=== PATIENT | male | born 1955 | race Caucasian/White ===

== ENCOUNTER 2018-03-16 12:08 | Emergency (ER) | payer MEDICARE ==
[2018-03-16] MEDS ORDERED: Sodium Chloride 0.9% 1,000 ML IV ONE (12:33)
[2018-03-16] MEDS ORDERED: Sodium Chloride 0.9% 2.5 ML Syringe FLUSH PRN (12:33)
[2018-03-16] MEDS ORDERED: Sodium Chloride 0.9% 10 ML Syringe FLUSH PRN (12:33)
[2018-03-16] MEDS ORDERED: Ondansetron 4 MG/2 ML SDV IVPUSH ONE (12:33)
--- NOTE | 2018-03-16 12:40 | EDM.PDOC ---
ED HPI GENERAL MEDICAL PROBLEM - General Chief Complaint: General Time Seen by Provider: 03/16/18 12:27 Source of Information: Reports: Family History Limitations: Reports: No Limitations - History of Present Illness INITIAL COMMENTS - FREE TEXT/NARRATIVE: History of present illness: []He is one-month status post aka right lower extremity, (2-1/2 years post left aka amputation). Patient was at a rehabilitation facility and my not and was discharged today to [place] here and [place], however upon arrival at [place] they refused to take him and stated he needed to come to the emergency room. She states that he's been vomiting green fluid in the car on the drive to [place] today and has been complaining of pain in his Hernandez catheter. Patient is not taking fluids very well by mouth. Patient's last bowel movement was 3 days ago Review of systems: As per history of present illness and below otherwise all systems reviewed and negative. Past medical history: As per history of present illness and as reviewed below otherwise noncontributory. Surgical history: As per history of present illness and as reviewed below otherwise noncontributory. Social history: No reported history of drug or alcohol abuse. Family history: As per history of present illness and as reviewed below otherwise noncontributory. Physical exam: General: Well developed, well nourished in NAD HEENT: Atraumatic, normocephalic, pupils reactive, negative for conjunctival pallor or scleral icterus, mucous membranes moist, throat clear, neck supple, nontender, trachea midline. Lungs: Clear to auscultation, breath sounds equal bilaterally, chest nontender. Heart: S1S2, regular, negative for clicks, rubs, or JVD. Abdomen: Soft, nondistended, nontender. Negative for masses or hepatosplenomegaly. Negative for costovertebral tenderness. Pelvis: Stable nontender. Genitourinary: Deferred. Rectal: Deferred. Extremities: Bilateral AKA Neuro: Awake, alert, oriented. Cranial nerves II through XII unremarkable. Cerebellum unremarkable. Motor and sensory unremarkable throughout. Exam nonfocal. Skin:warm and dry Diagnostics: CBC, EKG, chemistry, lipase, UA Therapeutics: IV hydration and later saline, calcium chloride, glucose, regular insulin and sodium bicarbonate given prior transport ED Course: 13:[address] [facility] accepts patient Impression: Pancreatitis, hyperkalemia, dehydration, renal failure Prescriptions: None Plan: Transfer to [facility] Definitive disposition and diagnosis as appropriate pending reevaluation and review of above. Penis Pain Score (Numeric/FACES): 8 - Related Data Allergies Allergy/AdvReac Type Severity Reaction Status Date / Time bee venom protein (honey bee) Allergy Other Verified 03/16/18 13:48 fentanyl Allergy Other Verified 03/16/18 13:48 hydrocodone Allergy Other Verified 03/16/18 13:48 oxycodone Allergy Other Verified 03/16/18 13:48 propoxyphene [From Darvon] Allergy Other Verified 03/16/18 13:48 Home Meds: Home Meds Allopurinol [Zyloprim] 300 mg PO DAILY 09/01/13 [History] Aspirin [Children's Aspirin] 81 mg PO DAILY 09/01/13 [History] Gemfibrozil [Lopid] 600 mg PO DAILY 09/01/13 [History] Insulin Glarg,Human.Rec.Analog [LantUS] 34 unit SUBCUT DAILY 09/01/13 [History] Insulin Lispro [HumaLOG] 74 unit SQ ACBED 09/01/13 [History] Lisinopril 40 mg PO DAILY 09/01/13 [History] metFORMIN [Glucophage] 1,000 mg PO BIDM 09/01/13 [History] Past Medical History - Past Surgical History Other Cardiovascular Surgeries/Procedures: quad bypass ED ROS GENERAL - Review of Systems Review Of Systems: ROS reveals no pertinent complaints other than HPI. ED EXAM, GENERAL - Physical Exam Exam: See Below (The history of present illness) Course - Vital Signs Last Recorded V/S: Last Vital Signs Temp 96.4 F 03/16/18 12:30 Pulse 72 03/16/18 12:30 Resp 18 03/16/18 12:30 BP 125/60 03/16/18 12:30 Pulse Ox 95 03/16/18 12:30 - Orders/Labs/Meds Orders: Active Orders 24 hr Category Date Time Status EKG Documentation Completion [RC] STAT Care 03/16/18 13:37 Ordered UA W/MICROSCOPIC [URIN] Stat Lab 03/16/18 12:32 Ordered Sodium Chloride 0.9% [Saline Flush] Med 03/16/18 12:33 Active 10 ml FLUSH ASDIRECTED PRN Sodium Chloride 0.9% [Saline Flush] Med 03/16/18 12:33 Active 2.5 ml FLUSH ASDIRECTED PRN Saline Lock Insert [OM.PC] Stat Oth 03/16/18 12:32 Ordered Medication Orders Sodium Chloride (Saline Flush) 10 ml FLUSH ASDIRECTED PRN PRN Reason: Keep Vein Open Sodium Chloride (Saline Flush) 2.5 ml FLUSH ASDIRECTED PRN PRN Reason: Keep Vein Open Labs: Laboratory Tests 03/16/18 03/16/18 Range/Units 12:54 12:54 WBC 7.27 (4.0-11.0) K/uL RBC 4.06 L (4.50-5.90) M/uL Hgb 11.4 L (13.0-17.0) g/dL Hct 34.8 L (38.0-50.0) % MCV 85.7 (80.0-98.0) fL MCH 28.1 (27.0-32.0) pg MCHC 32.8 (31.0-37.0) g/dL RDW Std Deviation 47.8 (28.0-62.0) fl RDW Coeff of Joshua 15 (11.0-15.0) % Plt Count 263 (150-400) K/uL MPV 10.00 (7.40-12.00) fL Neut % (Auto) 81.2 H (48.0-80.0) % Lymph % (Auto) 12.2 L (16.0-40.0) % [place] % (Auto) 3.4 (0.0-15.0) % Eos % (Auto) 2.9 (0.0-7.0) % Baso % (Auto) 0.3 (0.0-1.5) % Neut # (Auto) 5.9 H (1.4-5.7) K/uL Lymph # (Auto) 0.9 (0.6-2.4) K/uL [place] # (Auto) 0.3 (0.0-0.8) K/uL Eos # (Auto) 0.2 (0.0-0.7) K/uL Baso # (Auto) 0.0 (0.0-0.1) K/uL Nucleated RBC % 0.0 /100WBC Nucleated RBCs # 0 K/uL Sodium 138 (136-148) mmol/L Potassium 6.0 H (3.5-5.1) mmol/L Chloride 104 (98-107) mmol/L Carbon Dioxide 17.1 L (21.0-32.0) mmol/L BUN 205 H (7.0-18.0) mg/dL Creatinine 2.8 H (0.8-1.3) mg/dL Est Cr Clr Drug Dosing TNP Estimated GFR (MDRD) 22.9 ml/min Glucose 144 H (74-106) mg/dL Calcium 9.7 (8.5-10.1) mg/dL Total Bilirubin 0.2 (0.2-1.0) mg/dL AST 19 (15-37) IU/L ALT 13 L (14-63) IU/L Alkaline Phosphatase 106 (46-116) U/L Total Protein 7.9 (6.4-8.2) g/dL Albumin 3.4 (3.4-5.0) g/dL Globulin 4.5 H (2.6-4.0) g/dL Albumin/Globulin Ratio 0.8 L (0.9-1.6) Lipase 685 H (73-393) U/L Meds: Medications Generic Name Dose Route Start Last Admin Trade Name Aleksandr PRN Reason Stop Dose Admin Sodium Chloride 10 ml 03/16/18 12:33 Saline Flush FLUSH ASDIRECTED PRN Keep Vein Open Sodium Chloride 2.5 ml 03/16/18 12:33 Saline Flush FLUSH ASDIRECTED PRN Keep Vein Open Discontinued Medications Generic Name Dose Route Start Last Admin Trade Name Aleksandr PRN Reason Stop Dose Admin Calcium Chloride 1 gm 03/16/18 13:38 Calcium Chloride 10% IVPUSH 03/16/18 13:39 ONETIME ONE Sodium Chloride 1,000 mls @ 999 mls/hr 03/16/18 12:33 03/16/18 13:05 Normal Saline IV 03/16/18 13:33 999 mls/hr .Bolus ONE Administration Insulin Human Regular 10 unit 03/16/18 13:40 Novolin R IVPUSH 03/16/18 13:41 ONETIME ONE Protocol Metoclopramide HCl 10 mg 03/16/18 13:20 Reglan IV 03/16/18 13:21 ONETIME ONE Ondansetron HCl 4 mg 03/16/18 12:33 03/16/18 13:05 Zofran IVPUSH 03/16/18 12:34 4 mg ONETIME ONE Administration Sodium Bicarbonate 50 meq 03/16/18 13:40 Sodium Bicarbonate 8.4% IVPUSH 03/16/18 13:41 ONETIME ONE Departure - Departure Time of Disposition: 13:55 Disposition: DC/Tfer to Acute Hospital 02 Condition: Good Clinical Impression: Hyperkalemia Pancreatitis Qualifiers: Chronicity: acute Pancreatitis type: unspecified pancreatitis type Acute pancreatitis complication: unspecified Qualified Code(s): K85.90 - Acute pancreatitis without necrosis or infection, unspecified Renal failure Qualifiers: Renal failure chronicity: acute Acute renal failure type: unspecified Qualified Code(s): N17.9 - Acute kidney failure, unspecified - Discharge Information *PRESCRIPTION DRUG MONITORING PROGRAM REVIEWED*: No *COPY OF PRESCRIPTION DRUG MONITORING REPORT IN PATIENT FLACA: No Referrals: PCP,Unknown [Primary Care Provider] - Forms: ED Department Discharge - My Orders Last 24 Hours: My Active Orders 03/16/18 12:32 UA W/MICROSCOPIC [URIN] Stat Saline Lock Insert [OM.PC] Stat 03/16/18 12:33 Sodium Chloride 0.9% [Saline Flush] 10 ml FLUSH ASDIRECTED PRN Sodium Chloride 0.9% [Saline Flush] 2.5 ml FLUSH ASDIRECTED PRN 03/16/18 13:37 EKG Documentation Completion [RC] STAT - Assessment/Plan Last 24 Hours: My Active Orders 03/16/18 12:32 UA W/MICROSCOPIC [URIN] Stat Saline Lock Insert [OM.PC] Stat 03/16/18 12:33 Sodium Chloride 0.9% [Saline Flush] 10 ml FLUSH ASDIRECTED PRN Sodium Chloride 0.9% [Saline Flush] 2.5 ml FLUSH ASDIRECTED PRN 03/16/18 13:37 EKG Documentation Completion [RC] STAT
[2018-03-16 13:24] LABS: CHLORIDE,CL 104 mmol/L (98-107); SODIUM,NA 138 mmol/L (136-148)
[2018-03-16] MEDS ORDERED: Calcium Chloride 10% 1 GM/10 ML Syringe IVPUSH ONE (13:38)
[2018-03-16] MEDS ORDERED: Sodium Bicarbonate 8.4% 50 MEQ/50 ML Syringe IVPUSH ONE (13:40)
[2018-03-16] MEDS ORDERED: 50% Dextrose in Water 50 ML Syringe ONE (13:49)
[2018-03-16] MEDS: Insulin Regular, Human 100 Units/ML 10 ML Vial IVPUSH ONE ×2 (14:00→14:39)
[2018-03-16] MEDS: Metoclopramide 10 MG/2 ML SDV IV ONE ×2 (14:03→17:07)
[2018-03-16 16:33] VITALS: BP 111/63
== END 2018-03-16 15:45 ==
LOC: MW.ED 12:08
DX: K85.90 Acute pancreatitis without necrosis or infection, unspecified (principal); N17.9 Acute kidney failure, unspecified; E87.5 Hyperkalemia; E86.0 Dehydration; E11.9 Type 2 diabetes mellitus without complications; I10 Essential (primary) hypertension; Z79.82 Long term (current) use of aspirin; Z79.899 Other long term (current) drug therapy; Z91.030 Bee allergy status; Z88.5 Allergy status to narcotic agent; Z88.8 Allergy status to other drugs, medicaments and biological substances; Z89.512 Acquired absence of left leg below knee; Z89.611 Acquired absence of right leg above knee
CPT/HCPCS: 36415; 80053; 81001; 83690; 85025; 93005; 96361; 96374; 96375; 99285; J2405; J7040; J7060; J1815-GY; J2765

== ENCOUNTER 2018-03-23 04:50 | Emergency (ER) | payer MEDICARE ==
[2018-03-23] MEDS ORDERED: Ondansetron 4 MG/2 ML SDV IVPUSH ONE ×2 (05:24→06:59)
[2018-03-23] MEDS ORDERED: Sodium Chloride 0.9% 1,000 ML IV ONE (05:56)
[2018-03-23 06:09] LABS: CHLORIDE,CL 108 mmol/L (98-107); SODIUM,NA 145 mmol/L (136-148)
--- NOTE | 2018-03-23 06:56 | CR ---
INDICATION: Chest pain. TECHNIQUE: Portable chest. FINDINGS: Sternotomy wires are noted. There is elevation of the right hemidiaphragm. Heart and mediastinum are normal. Lungs are clear. IMPRESSION: 1. Prior sternotomy wires. 2. Chronic elevation of the right hemidiaphragm. No acute consolidations or pleural effusions. Dictated by Ge Chan MD @ Mar 23 2018 6:53AM Signed by Dr. Ge Chan @ Mar 23 2018 6:54AM
[2018-03-23] MEDS ORDERED: Ondansetron 4 MG/2 ML SDV ONE (07:01)
[2018-03-23] MEDS ORDERED: cefTRIAXone 1 GM Vial IM ONE (07:14)
--- NOTE | 2018-03-23 07:22 | EDM.PDOC ---
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 He presents today with concern of chest and abdominal pain nausea and vomiting he states some of the symptoms have been off and on for the past month and he states he has had a cardiac workup including angiogram at [facility] although there was no intervention reported per patient's history he states that he was told that he is at high risk for cardiac events. He is a vague historian and somewhat unreliable with the details. His chest pains without associated shortness of breath or diaphoresis. Patient does take aspirin daily and did take 1 today. Review of systems: As per history of present illness and below otherwise all systems reviewed and negative. Past medical history: As per history of present illness and as reviewed below otherwise noncontributory. Surgical history: As per history of present illness and as reviewed below otherwise noncontributory. Social history: No reported history of drug or alcohol abuse. Family history: As per history of present illness and as reviewed below otherwise noncontributory. Physical exam: HEENT: Atraumatic, normocephalic, pupils reactive, negative for conjunctival pallor or scleral icterus, mucous membranes dry, throat clear, neck supple, nontender, trachea midline. Lungs: Clear to auscultation, breath sounds equal bilaterally, chest nontender. Heart: S1S2, regular, negative for clicks, rubs, or JVD. Abdomen: Soft, nondistended, no localized tenderness Negative for masses or hepatosplenomegaly. Negative for costovertebral tenderness. Pelvis: Stable nontender. Genitourinary: Deferred. Rectal: Deferred. Extremities: Bilateral [id number] amputation noted his wound on the left recent amputation is without evidence of infection neurovascular exam is unremarkable. Neuro: Awake, alert, follows commands and moves all extremities limited grossly nonfocal exam Diagnostics: CBC CMP troponin chest x-ray EKG CT abdomen and pelvis Therapeutics: IV O2 monitor saline 1 L bolus morphine sulfate 2 mg IV Zofran 4 mg IV Impression: #1 atypical chest pain #2 abnormal EKG #3 abdominal pain for 4 history of pancreatitis Definitive disposition and diagnosis as appropriate pending reevaluation and review of above. Epigastric/abdomen Pain Score (Numeric/FACES): 9 - Related Data Allergies Allergy/AdvReac Type Severity Reaction Status Date / Time bee venom protein (honey bee) Allergy Other Verified 03/23/18 06:35 fentanyl Allergy Other Verified 03/23/18 06:35 hydrocodone Allergy Other Verified 03/23/18 06:35 oxycodone Allergy Other Verified 03/23/18 06:35 propoxyphene [From Darvon] Allergy Other Verified 03/23/18 06:35 Home Meds: Home Meds Aspirin [Children's Aspirin] 81 mg PO DAILY 09/01/13 [History] Gemfibrozil [Lopid] 600 mg PO DAILY 09/01/13 [History] metFORMIN [Glucophage] 500 mg PO BIDM 09/01/13 [History] Carvedilol 6.25 mg PO BID 03/23/18 [History] Docusate Sodium 100 mg PO DAILY 03/23/18 [History] Glimepiride [Amaryl] 2 mg PO DAILY 03/23/18 [History] Lisinopril/Hydrochlorothiazide [Lisinopril-Hctz 20-12.5 mg Tab] 1 each PO DAILY 03/23/18 [History] Mirtazapine [Remeron] 15 mg PO BEDTIME 03/23/18 [History] Nitroglycerin [Nitroglycerin Patch 0.2 MG/Hr] 5 mg TRDERM DAILY 03/23/18 [ History] atorvaSTATin [Lipitor] 80 mg PO BEDTIME 03/23/18 [History] Past Medical History Cardiovascular History: Reports: High Cholesterol, Hypertension Genitourinary History: Reports: Acute Renal Failure, Hydronephrosis, Retention, Urinary, Urinary Incontinence, Other (See Below) Other Genitourinary History: urinary catheter in place Endocrine/Metabolic History: Reports: Diabetes, Type II - Past Surgical History Other Cardiovascular Surgeries/Procedures: quad bypass Musculoskeletal Surgical History: Reports: Amputation, Other (See Below) Other Musculoskeletal Surgeries/Procedures:: bilateral above the knee amputation Social & Family History - Family History Family Medical History: Noncontributory - Tobacco Use Smoking Status *Q: Former Smoker Years of Tobacco use: 50 Packs/Tins Daily: 1 Used Tobacco, but Quit: Yes Month/Year Tobacco Last Used: 01/17 - Caffeine Use Caffeine Use: Reports: None - Recreational Drug Use Recreational Drug Use: No ED ROS GENERAL - Review of Systems Review Of Systems: ROS reveals no pertinent complaints other than HPI. ED EXAM, GENERAL - Physical Exam Exam: See Below (See dictation) Course - Vital Signs Text/Narrative:: Patient's blood pressure remained somewhat labile here with a systolic approximately 100 chest pain is improved slightly but in light of its persistence and unclear etiology as well as diffuse EKG changes patient will be transferred to [place] he somewhat unenthusiastic about the idea but does agree. Rocephin 1 g was given IV for possible UTI morphine sulfate 2 mg given IV patient be transferred by ground ambulance [place] [facility] spoke with Dr. Watts emergency department and graciously accept patient. Last Recorded V/S: Last Vital Signs Temp 36.2 C 03/23/18 05:15 Pulse 83 03/23/18 05:15 Resp 16 03/23/18 05:15 BP 147/73 H 03/23/18 05:15 Pulse Ox 94 L 03/23/18 05:15 - Orders/Labs/Meds Orders: Active Orders 24 hr Category Date Time Status Cardiac Monitoring [RC] . DIRECTED Care 03/23/18 05:22 Active EKG Documentation Completion [RC] STAT Care 03/23/18 05:22 Active Abdomen Pelvis wo Cont [CT] Stat Exams 03/23/18 06:37 Taken CULTURE URINE [RM] Stat Lab 03/23/18 05:34 Received LIPASE [CHEM] Stat Lab 03/23/18 07:04 Ordered Labs: Laboratory Tests 03/23/18 03/23/18 03/23/18 Range/Units 05:30 05:30 05:30 WBC 15.14 H (4.0-11.0) K/uL RBC 4.23 L (4.50-5.90) M/uL Hgb 11.6 L (13.0-17.0) g/dL Hct 36.0 L (38.0-50.0) % MCV 85.1 (80.0-98.0) fL MCH 27.4 (27.0-32.0) pg MCHC 32.2 (31.0-37.0) g/dL RDW Std Deviation 47.4 (28.0-62.0) fl RDW Coeff of Joshua 15 (11.0-15.0) % Plt Count 313 (150-400) K/uL MPV 9.90 (7.40-12.00) fL Neut % (Auto) 89.5 H (48.0-80.0) % Lymph % (Auto) 6.3 L (16.0-40.0) % [facility] % (Auto) 3.6 (0.0-15.0) % Eos % (Auto) 0.5 (0.0-7.0) % Baso % (Auto) 0.1 (0.0-1.5) % Neut # (Auto) 13.6 H (1.4-5.7) K/uL Lymph # (Auto) 1.0 (0.6-2.4) K/uL [facility] # (Auto) 0.5 (0.0-0.8) K/uL Eos # (Auto) 0.1 (0.0-0.7) K/uL Baso # (Auto) 0.0 (0.0-0.1) K/uL Nucleated RBC % 0.0 /100WBC Nucleated RBCs # 0 K/uL INR 1.23 Sodium 145 (136-148) mmol/L Potassium 3.3 L (3.5-5.1) mmol/L Chloride 108 H (98-107) mmol/L Carbon Dioxide 26.4 (21.0-32.0) mmol/L BUN 30 H (7.0-18.0) mg/dL Creatinine 0.9 (0.8-1.3) mg/dL Est Cr Clr Drug Dosing TNP Estimated GFR (MDRD) > 60.0 ml/min Glucose 49 L (74-106) mg/dL Calcium 9.0 (8.5-10.1) mg/dL Total Bilirubin 0.3 (0.2-1.0) mg/dL AST 18 (15-37) IU/L ALT 15 (14-63) IU/L Alkaline Phosphatase 96 (46-116) U/L Troponin I < 0.050 (0.000-0.056) ng/mL Total Protein 7.1 (6.4-8.2) g/dL Albumin 3.1 L (3.4-5.0) g/dL Globulin 4.0 (2.6-4.0) g/dL Albumin/Globulin Ratio 0.8 L (0.9-1.6) Urine Color Urine Appearance Urine pH (5.0-8.0) Ur Specific [place] (1.001-1.035) Urine Protein (NEGATIVE) mg/dL Urine Glucose (UA) (NEGATIVE) mg/dL Urine Ketones (NEGATIVE) mg/dL Urine Occult Blood (NEGATIVE) Urine Nitrite (NEGATIVE) Urine Bilirubin (NEGATIVE) Urine Urobilinogen (<2.0) EU/dL Ur Leukocyte Esterase (NEGATIVE) Urine RBC (0-2/HPF) Urine WBC (0-5/HPF) Ur Epithelial Cells (NONE-FEW) Uric Acid Crystals (NEGATIVE) Urine Bacteria (NEGATIVE) 03/23/18 Range/Units 05:34 WBC (4.0-11.0) K/uL RBC (4.50-5.90) M/uL Hgb (13.0-17.0) g/dL Hct (38.0-50.0) % MCV (80.0-98.0) fL MCH (27.0-32.0) pg MCHC (31.0-37.0) g/dL RDW Std Deviation (28.0-62.0) fl RDW Coeff of Joshua (11.0-15.0) % Plt Count (150-400) K/uL MPV (7.40-12.00) fL Neut % (Auto) (48.0-80.0) % Lymph % (Auto) (16.0-40.0) % [facility] % (Auto) (0.0-15.0) % Eos % (Auto) (0.0-7.0) % Baso % (Auto) (0.0-1.5) % Neut # (Auto) (1.4-5.7) K/uL Lymph # (Auto) (0.6-2.4) K/uL [facility] # (Auto) (0.0-0.8) K/uL Eos # (Auto) (0.0-0.7) K/uL Baso # (Auto) (0.0-0.1) K/uL Nucleated RBC % /100WBC Nucleated RBCs # K/uL INR Sodium (136-148) mmol/L Potassium (3.5-5.1) mmol/L Chloride (98-107) mmol/L Carbon Dioxide (21.0-32.0) mmol/L BUN (7.0-18.0) mg/dL Creatinine (0.8-1.3) mg/dL Est Cr Clr Drug Dosing Estimated GFR (MDRD) ml/min Glucose (74-106) mg/dL Calcium (8.5-10.1) mg/dL Total Bilirubin (0.2-1.0) mg/dL AST (15-37) IU/L ALT (14-63) IU/L Alkaline Phosphatase (46-116) U/L Troponin I (0.000-0.056) ng/mL Total Protein (6.4-8.2) g/dL Albumin (3.4-5.0) g/dL Globulin (2.6-4.0) g/dL Albumin/Globulin Ratio (0.9-1.6) Urine Color YELLOW Urine Appearance CLEAR Urine pH 6.0 (5.0-8.0) Ur Specific [place] 1.025 (1.001-1.035) Urine Protein 100 H (NEGATIVE) mg/dL Urine Glucose (UA) NEGATIVE (NEGATIVE) mg/dL Urine Ketones TRACE H (NEGATIVE) mg/dL Urine Occult Blood MODERATE H (NEGATIVE) Urine Nitrite NEGATIVE (NEGATIVE) Urine Bilirubin NEGATIVE (NEGATIVE) Urine Urobilinogen 0.2 (<2.0) EU/dL Ur Leukocyte Esterase TRACE H (NEGATIVE) Urine RBC 6-8 (0-2/HPF) Urine WBC 4-6 (0-5/HPF) Ur Epithelial Cells FEW (NONE-FEW) Uric Acid Crystals MODERATE (NEGATIVE) Urine Bacteria FEW (NEGATIVE) Meds: Medications Discontinued Medications Generic Name Dose Route Start Last Admin Trade Name Freq PRN Reason Stop Dose Admin Ceftriaxone Sodium 1 gm 03/23/18 07:14 Rocephin IM 03/23/18 07:15 ONETIME ONE Sodium Chloride 1,000 mls @ 999 mls/hr 03/23/18 05:56 03/23/18 06:55 Normal Saline IV 03/23/18 06:56 999 mls/hr .Bolus ONE Administration Ondansetron HCl 4 mg 03/23/18 05:24 03/23/18 05:38 Zofran IVPUSH 03/23/18 05:25 4 mg ONETIME ONE Administration Ondansetron HCl 4 mg 03/23/18 06:59 03/23/18 07:04 Zofran IVPUSH 03/23/18 07:00 4 mg ONETIME ONE Administration Ondansetron HCl Confirm 03/23/18 07:01 Zofran Administered 03/23/18 07:02 Dose 4 mg .ROUTE .STK-MED ONE Departure - Departure Time of Disposition: :22 Disposition: DC/Tfer to Acute Hospital 02 Condition: Serious Clinical Impression: Chest pain, Abdominal pain, UTI (urinary tract infection) - Discharge Information Referrals: Kingsley Koenig MD [Primary Care Provider] - Forms: ED Department Discharge - My Orders Last 24 Hours: My Active Orders 03/23/18 05:22 Cardiac Monitoring [RC] . DIRECTED EKG Documentation Completion [RC] STAT 03/23/18 05:34 CULTURE URINE [RM] Stat 03/23/18 06:37 Abdomen Pelvis wo Cont [CT] Stat 03/23/18 07:04 LIPASE [CHEM] Stat - Assessment/Plan Last 24 Hours: My Active Orders 03/23/18 05:22 Cardiac Monitoring [RC] . DIRECTED EKG Documentation Completion [RC] STAT 03/23/18 05:34 CULTURE URINE [RM] Stat 03/23/18 06:37 Abdomen Pelvis wo Cont [CT] Stat 03/23/18 07:04 LIPASE [CHEM] Stat
[2018-03-23] MEDS ORDERED: Morphine 2 MG/ML Syringe IVPUSH ONE (07:24)
[2018-03-23] MEDS ORDERED: cefTRIAXone 1 GM in Premix Bag 1 BAG IV ONE (07:25)
--- NOTE | 2018-03-23 07:52 | CT ---
INDICATION: Abdominal pain with hematemesis. TECHNIQUE: Noncontrast CT of the abdomen and pelvis. The abdomen and pelvis were scanned from lung bases through the symphysis pubis. Sagittal and coronal reformatted images were generated. COMPARISON: Prior CT the abdomen and pelvis dated 09/08/2011. FINDINGS: There is a calcified granuloma at the left lung base. There is also calcified subcarinal lymphadenopathy. There is dependent atelectasis on the right. No significant pleural effusions. There are calcified granulomas in the liver and spleen. There are small gallstones in the gallbladder consistent with cholelithiasis. Probable sludge in the gallbladder. No masses in the pancreas. There is thickening of the left adrenal gland consistent with hyperplasia/adenoma unchanged from the prior examination. There is bilateral renal scarring. There is a 3 mm stone in the left kidney on image 60. No obstruction or hydronephrosis bilaterally. There is no evidence of bowel obstruction, free air, or free fluid. Vascular calcification. There is no evidence of bowel obstruction. There is diverticulosis without evidence of diverticulitis. There is a Hernandez catheter. Urinary bladder is decompressed. IMPRESSION: 1. Old granulomatous disease; calcified granuloma left lung base, calcified subcarinal lymph nodes and calcified granulomas in the liver and spleen. 2. Gallstones and sludge in the gallbladder. 3. Nonobstructing nephrolith left kidney. 4. Cortical scarring both kidneys chronic. 5. No bowel obstruction, free air, or free fluid. 6. Diverticulosis without evidence of diverticulitis. 7. Hernandez catheter in a decompressed urinary bladder. Please note that all CT scans at this facility use dose modulation, iterative reconstruction, and/or weight-based dosing when appropriate to reduce radiation dose to as low as reasonably achievable. Dictated by Ge Chan MD @ Mar 23 2018 7:39AM Signed by Dr. Ge Chan @ Mar 23 2018 7:50AM
[2018-03-23] MEDS ORDERED: Metoclopramide 10 MG/2 ML SDV IVPUSH ONE (08:34)
[2018-03-23] MEDS ORDERED: Metoclopramide 10 MG/2 ML SDV ONE (08:35)
[2018-03-23 09:11] VITALS: BP 136/53
== END 2018-03-23 08:40 ==
LOC: MW.ED 04:50
DX: R07.89 Other chest pain (principal); N39.0 Urinary tract infection, site not specified; R94.31 Abnormal electrocardiogram [ECG] [EKG]; E78.00 Pure hypercholesterolemia, unspecified; I10 Essential (primary) hypertension; E11.9 Type 2 diabetes mellitus without complications; Z91.030 Bee allergy status; Z79.899 Other long term (current) drug therapy; Z79.82 Long term (current) use of aspirin; Z79.84 Long term (current) use of oral hypoglycemic drugs; Z87.891 Personal history of nicotine dependence
CPT/HCPCS: 36415; 71045; 74176; 80053; 81001; 83690; 84484; 85025; 85610; 87086; 93005; 96361; 96365; 96375; 96376; 99285; J0696; J2270; J2405; J2765; J7040

== ENCOUNTER 2018-04-09 18:35 | Emergency (ER) | payer MEDICARE, MEDICAID ==
[2018-04-09] MEDS ORDERED: Sodium Chloride 0.9% 2.5 ML Syringe FLUSH PRN (19:29)
[2018-04-09] MEDS ORDERED: Sodium Chloride 0.9% 1,000 ML IV ONE (19:29)
[2018-04-09] MEDS ORDERED: Sodium Chloride 0.9% 10 ML Syringe FLUSH PRN (19:29)
--- NOTE | 2018-04-09 19:34 | EDM.PDOC ---
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 He is currently at [facility] for rehabilitation and as a code 3 status. The patient and say that his left incision is healing well and he went into urinary retention about 6 weeks ago and had to have a Hernandez placed. After a few days they tried to remove it and he went back into urinary retention so it was replaced and he has had it in place for the last 6 weeks. He is scheduled to see the urologist Dr. Roy at [facility] in the next week or so to see if he can have it removed and he was sent by [facility] for blood in the Hernandez bag. The patient is on Plavix and aspirin but no other anticoagulation is on his list and he denies any abdominal pain or sensation that he is in urinary retention. According to the the Hernandez is been draining well since it was placed and there are no issues with that other than the color change. According to the and the patient he has not had much of an appetite and has not been eating very much and has only been taking small sips of fluid. He also says that he has not had much of an appetite or desire to drink anything since his surgery on his leg. He is transferred from a bed to a wheelchair by a [facility] and he is able to wheel himself around but he says he feels an overall sense of generalized weakness. He has no chest pain or shortness of breath no vomiting or abdominal pain no back pain and no pain at his legs. He was sent by [facility] because of the blood in the Hernandez bag only. Patient and both tell me that he is just very unmotivated to even try eating as he has no appetite and according to both of them and [facility] he often times will refuse medications and they're trying to give them to him although he tells me it's only the nitroglycerin when he says that he has chest discomfort that he is refusing and is taking all of her meds. Review of systems: As per history of present illness and below otherwise all systems reviewed and negative. Past medical history: As per history of present illness and as reviewed below otherwise noncontributory. Surgical history: As per history of present illness and as reviewed below otherwise noncontributory. Social history: No reported history of drug or alcohol abuse. Family history: As per history of present illness and as reviewed below otherwise noncontributory. Physical exam: General: Well-developed thin man who is nontoxic and vital signs are noted by me. He is very soft spoken and quiet on my evaluation HEENT: Atraumatic, normocephalic, pupils reactive, negative for conjunctival pallor or scleral icterus, mucous membranes tacky, throat clear, neck supple, nontender, trachea midline. Lungs: Clear to auscultation, breath sounds equal bilaterally, chest nontender. Heart: S1S2, regular, negative for clicks, rubs, or JVD. Abdomen: Soft, nondistended, nontender. Negative for masses or hepatosplenomegaly. NABS grade no sensation of urinary retention or fullness in the suprapubic region Pelvis: Stable nontender. Genitourinary: Deferred. Rectal: Deferred. Extremities: Atraumatic, patient has bilateral AKA's and the scar on the right leg is well-healed due to its chronic nature and the incision on the left is clean and dry without any erythema and has good healing. There is no swelling tenderness or erythema to that stump. Upper extremities have full range of motion without defects or deficits Neurovascular unremarkable. Neuro: Awake, alert, oriented. Cranial nerves II through XII unremarkable. Motor and sensory unremarkable throughout. Exam nonfocal. Diagnostics: CBC CMP INR UA with reflex culture magnesium level Therapeutics: IV fluids irrigation of the Hernandez Rocephin Nursing irrigated the Hernandez and says that they did get some clots out and were able to get the urine to clear. We will monitor the output going forward. It is noted that the patient's hemoglobin is 10.3 and the last one documented in the computer was 11.6 on March 23. The patient also has signs on his clean urine sample of a UTI which I will give him a dose of Rocephin. 2103: Case was discussed with Dr. Koenig who is on-call for [facility] and I've also discussed all testing results with the patient and at bedside. As the hematuria is improving, and according to Dr. Koenig he has had intermittent hematuria all week and this is not just new today, he feels comfortable with sending back to [facility] and to get IV fluids overnight. I will send a prescription for Levaquin and have given him the Rocephin here. The family and the patient are comfortable with this care plan and would prefer not to be admitted here but to go back to [facility] as long as he can get the treatment then he needs. Dr. Koenig is currently calling [facility] to arrange to give the IV fluids and we will send the patient back to [facility] with the IV in place. He will address removal of the IV in 24 hours. Patient and are comfortable with this Impression: Hematuria with history of indwelling Hernandez, UTI; recent left AKA with long- standing history of diabetes and peripheral vascular disease stable Definitive disposition and diagnosis as appropriate pending reevaluation and review of above. Penis Pain Score (Numeric/FACES): 8 - Related Data Allergies Allergy/AdvReac Type Severity Reaction Status Date / Time bee venom protein (honey bee) Allergy Other Verified 04/09/18 18:53 fentanyl Allergy Other Verified 04/09/18 18:53 hydrocodone Allergy Other Verified 04/09/18 18:53 oxycodone Allergy Other Verified 04/09/18 18:53 propoxyphene [From Darvon] Allergy Other Verified 04/09/18 18:53 Home Meds: Home Meds Aspirin [Children's Aspirin] 81 mg PO DAILY 09/01/13 [History] Gemfibrozil [Lopid] 600 mg PO DAILY 09/01/13 [History] metFORMIN [Glucophage] 250 mg PO BIDM 09/01/13 [History] Carvedilol 6.25 mg PO BID 03/23/18 [History] Docusate Sodium 100 mg PO DAILY 03/23/18 [History] Lisinopril/Hydrochlorothiazide [Lisinopril-Hctz 20-12.5 mg Tab] 1 each PO DAILY 03/23/18 [History] Mirtazapine [Remeron] 15 mg PO BEDTIME 03/23/18 [History] Nitroglycerin [Nitroglycerin Patch 0.2 MG/Hr] 5 mg TRDERM DAILY 03/23/18 [ History] atorvaSTATin [Lipitor] 80 mg PO BEDTIME 03/23/18 [History] Clopidogrel Bisulfate [Clopidogrel] 1 tab DAILY 04/09/18 [History] Iron Ps Cmplx/Vit B12/Fa [Poly-Iron 150 Forte] 1 each PO BID 04/09/18 [History] SitaGLIPtin [Januvia] 100 mg PO DAILY 04/09/18 [History] Tamsulosin HCl [Flomax] 1 tab DAILY 04/09/18 [History] Past Medical History Cardiovascular History: Reports: High Cholesterol, Hypertension, Stents Genitourinary History: Reports: Acute Renal Failure, Hydronephrosis, Retention, Urinary, Urinary Incontinence, Other (See Below) Other Genitourinary History: urinary catheter in place Endocrine/Metabolic History: Reports: Diabetes, Type II Hematologic History: Reports: Anemia, Anticoagulation Therapy - Past Surgical History Other Cardiovascular Surgeries/Procedures: quad bypass Musculoskeletal Surgical History: Reports: Amputation, Other (See Below) Other Musculoskeletal Surgeries/Procedures:: bilateral above the knee amputation Social & Family History - Family History Family Medical History: Noncontributory - Tobacco Use Smoking Status *Q: Former Smoker Used Tobacco, but Quit: Yes Month/Year Tobacco Last Used: 2017 - Caffeine Use Caffeine Use: Reports: None - Recreational Drug Use Recreational Drug Use: No ED ROS GENERAL - Review of Systems Review Of Systems: ROS reveals no pertinent complaints other than HPI. ED EXAM, GENERAL - Physical Exam Exam: See Below (See dictation) Course - Vital Signs Last Recorded V/S: Last Vital Signs Temp 35.7 C 04/09/18 18:49 Pulse 77 04/09/18 20:54 Resp 18 04/09/18 20:54 BP 115/59 L 04/09/18 20:54 Pulse Ox 97 04/09/18 20:54 - Orders/Labs/Meds Orders: Active Orders 24 hr Category Date Time Status Blood Glucose Check, Bedside [RC] ONETIME Care 04/09/18 19:28 Active Communication Order [RC] STAT Care 04/09/18 19:28 Active CULTURE URINE [RM] Stat Lab 04/09/18 20:00 Received Sodium Chloride 0.9% [Saline Flush] Med 04/09/18 19:29 Active 10 ml FLUSH ASDIRECTED PRN Sodium Chloride 0.9% [Saline Flush] Med 04/09/18 19:29 Active 2.5 ml FLUSH ASDIRECTED PRN cefTRIAXone [Rocephin in Dextrose,Iso-Osm 2 GM/50 ML] 2 Med 04/09/18 20:41 Active gm Premix Bag 1 bag IV ONETIME Saline Lock Insert [OM.PC] Stat Oth 04/09/18 19:28 Ordered Medication Orders Ceftriaxone Sodium/Dextrose 2 (gm/ Premix) 50 mls @ 100 mls/hr IV ONETIME ONE Stop: 04/09/18 21:10 Last Admin: 04/09/18 20:55 Dose: 100 mls/hr Sodium Chloride (Saline Flush) 10 ml FLUSH ASDIRECTED PRN PRN Reason: Keep Vein Open Last Admin: 04/09/18 20:56 Dose: 10 ml Sodium Chloride (Saline Flush) 2.5 ml FLUSH ASDIRECTED PRN PRN Reason: Keep Vein Open Last Admin: 04/09/18 20:57 Dose: 2.5 ml Labs: Laboratory Tests 04/09/18 04/09/18 04/09/18 Range/Units 19:46 19:46 19:46 WBC 7.73 (4.0-11.0) K/uL RBC 3.79 L (4.50-5.90) M/uL Hgb 10.3 L (13.0-17.0) g/dL Hct 32.5 L (38.0-50.0) % MCV 85.8 (80.0-98.0) fL MCH 27.2 (27.0-32.0) pg MCHC 31.7 (31.0-37.0) g/dL RDW Std Deviation 49.8 (28.0-62.0) fl RDW Coeff of Joshua 16 H (11.0-15.0) % Plt Count 308 (150-400) K/uL MPV 9.00 (7.40-12.00) fL Neut % (Auto) 60.5 (48.0-80.0) % Lymph % (Auto) 26.0 (16.0-40.0) % [place] % (Auto) 8.3 (0.0-15.0) % Eos % (Auto) 4.8 (0.0-7.0) % Baso % (Auto) 0.4 (0.0-1.5) % Neut # (Auto) 4.7 (1.4-5.7) K/uL Lymph # (Auto) 2.0 (0.6-2.4) K/uL [place] # (Auto) 0.6 (0.0-0.8) K/uL Eos # (Auto) 0.4 (0.0-0.7) K/uL Baso # (Auto) 0.0 (0.0-0.1) K/uL Nucleated RBC % 0.0 /100WBC Nucleated RBCs # 0 K/uL INR 1.21 Sodium 140 (136-148) mmol/L Potassium 4.5 (3.5-5.1) mmol/L Chloride 102 (98-107) mmol/L Carbon Dioxide 28.7 (21.0-32.0) mmol/L BUN 65 H (7.0-18.0) mg/dL Creatinine 1.9 H (0.8-1.3) mg/dL Est Cr Clr Drug Dosing TNP Estimated GFR (MDRD) 35.9 ml/min Glucose 152 H (74-106) mg/dL Calcium 9.8 (8.5-10.1) mg/dL Magnesium 2.2 (1.8-2.4) mg/dL Total Bilirubin 0.4 (0.2-1.0) mg/dL AST 19 (15-37) IU/L ALT 18 (14-63) IU/L Alkaline Phosphatase 123 H (46-116) U/L Total Protein 7.5 (6.4-8.2) g/dL Albumin 3.4 (3.4-5.0) g/dL Globulin 4.1 H (2.6-4.0) g/dL Albumin/Globulin Ratio 0.8 L (0.9-1.6) Urine Color Urine Appearance Urine pH (5.0-8.0) Ur Specific [place] (1.001-1.035) Urine Protein (NEGATIVE) mg/dL Urine Glucose (UA) (NEGATIVE) mg/dL Urine Ketones (NEGATIVE) mg/dL Urine Occult Blood (NEGATIVE) Urine Nitrite (NEGATIVE) Urine Bilirubin (NEGATIVE) Urine Ictotest Urine Urobilinogen (<2.0) EU/dL Ur Leukocyte Esterase (NEGATIVE) Urine RBC (0-2/HPF) Urine WBC (0-5/HPF) Ur Epithelial Cells (NONE-FEW) Urine Bacteria (NEGATIVE) Urinalysis Comment Ketones (NEG) 04/09/18 04/09/18 Range/Units 19:46 20:00 WBC (4.0-11.0) K/uL RBC (4.50-5.90) M/uL Hgb (13.0-17.0) g/dL Hct (38.0-50.0) % MCV (80.0-98.0) fL MCH (27.0-32.0) pg MCHC (31.0-37.0) g/dL RDW Std Deviation (28.0-62.0) fl RDW Coeff of Joshua (11.0-15.0) % Plt Count (150-400) K/uL MPV (7.40-12.00) fL Neut % (Auto) (48.0-80.0) % Lymph % (Auto) (16.0-40.0) % [place] % (Auto) (0.0-15.0) % Eos % (Auto) (0.0-7.0) % Baso % (Auto) (0.0-1.5) % Neut # (Auto) (1.4-5.7) K/uL Lymph # (Auto) (0.6-2.4) K/uL [place] # (Auto) (0.0-0.8) K/uL Eos # (Auto) (0.0-0.7) K/uL Baso # (Auto) (0.0-0.1) K/uL Nucleated RBC % /100WBC Nucleated RBCs # K/uL INR Sodium (136-148) mmol/L Potassium (3.5-5.1) mmol/L Chloride (98-107) mmol/L Carbon Dioxide (21.0-32.0) mmol/L BUN (7.0-18.0) mg/dL Creatinine (0.8-1.3) mg/dL Est Cr Clr Drug Dosing Estimated GFR (MDRD) ml/min Glucose (74-106) mg/dL Calcium (8.5-10.1) mg/dL Magnesium (1.8-2.4) mg/dL Total Bilirubin (0.2-1.0) mg/dL AST (15-37) IU/L ALT (14-63) IU/L Alkaline Phosphatase (46-116) U/L Total Protein (6.4-8.2) g/dL Albumin (3.4-5.0) g/dL Globulin (2.6-4.0) g/dL Albumin/Globulin Ratio (0.9-1.6) Urine Color RED Urine Appearance HAZY Urine pH 6.0 (5.0-8.0) Ur Specific [place] 1.025 (1.001-1.035) Urine Protein 100 H (NEGATIVE) mg/dL Urine Glucose (UA) NEGATIVE (NEGATIVE) mg/dL Urine Ketones TRACE H (NEGATIVE) mg/dL Urine Occult Blood LARGE H (NEGATIVE) Urine Nitrite NEGATIVE (NEGATIVE) Urine Bilirubin MODERATE H (NEGATIVE) Urine Ictotest NEGATIVE Urine Urobilinogen 0.2 (<2.0) EU/dL Ur Leukocyte Esterase SMALL H (NEGATIVE) Urine RBC TOO NUMEROUS TO CT (0-2/HPF) Urine WBC 8-10 (0-5/HPF) Ur Epithelial Cells FEW (NONE-FEW) Urine Bacteria 1+ H (NEGATIVE) Urinalysis Comment Ketones SMALL H (NEG) Meds: Medications Generic Name Dose Route Start Last Admin Trade Name Freq PRN Reason Stop Dose Admin Ceftriaxone Sodium/Dextrose 2 50 mls @ 100 mls/hr 04/09/18 20:41 04/09/18 20: 55 gm/ Premix IV 04/09/18 21:10 100 mls/hr ONETIME ONE Administration Sodium Chloride 10 ml 04/09/18 19:29 04/09/18 20:56 Saline Flush FLUSH 10 ml ASDIRECTED PRN Administration Keep Vein Open Sodium Chloride 2.5 ml 04/09/18 19:29 04/09/18 20:57 Saline Flush FLUSH 2.5 ml ASDIRECTED PRN Administration Keep Vein Open Discontinued Medications Generic Name Dose Route Start Last Admin Trade Name Freq PRN Reason Stop Dose Admin Sodium Chloride 1,000 mls @ 999 mls/hr 04/09/18 19:29 04/09/18 20:07 Normal Saline IV 04/09/18 20:29 999 mls/hr STAT ONE Administration Departure - Departure Time of Disposition: 21:10 Disposition: DC/Tfer to SNF 03 Condition: Good Clinical Impression: UTI, Urinary tract infectious disease, Dehydration Hematuria Qualifiers: Hematuria type: unspecified type Qualified Code(s): R31.9 - Hematuria, unspecified - Discharge Information Referrals: Kingsley Koenig MD [Primary Care Provider] - Forms: ED Department Discharge Additional Instructions: The following information is given to patients seen in the emergency department who are being discharged to home. This information is to outline your options for follow-up care. We provide all patients seen in our emergency department with a follow-up referral. The need for follow-up, as well as the timing and circumstances, are variable depending upon the specifics of your emergency department visit. If you don't have a primary care physician on staff, we will provide you with a referral. We always advise you to contact your personal physician following an emergency department visit to inform them of the circumstance of the visit and for follow-up with them and/or the need for any referrals to a consulting specialist. The emergency department will also refer you to a specialist when appropriate. This referral assures that you have the opportunity for followup care with a specialist. All of these measure are taken in an effort to provide you with optimal care, which includes your followup. Under all circumstances we always encourage you to contact your private physician who remains a resource for coordinating your care. When calling for followup care, please make the office aware that this follow-up is from your recent emergency room visit. If for any reason you are refused follow-up, please contact the [facility] emergency department at and ask to speak to the emergency department charge nurse. [address] [place] [address] Please start the Levaquin you have been prescribed tomorrow as he received a dose of antibiotics here to cover you this evening. Dr. Koenig is currently writing orders for IV fluids to be given over the next 24 hours to assist with hydration. His tried to push hydration as best as you can and take all home medications. Return to ER as needed and as discussed - My Orders Last 24 Hours: My Active Orders 04/09/18 19:28 Blood Glucose Check, Bedside [RC] ONETIME Communication Order [RC] STAT Saline Lock Insert [OM.PC] Stat 04/09/18 19:29 Sodium Chloride 0.9% [Saline Flush] 10 ml FLUSH ASDIRECTED PRN Sodium Chloride 0.9% [Saline Flush] 2.5 ml FLUSH ASDIRECTED PRN 04/09/18 20:00 CULTURE URINE [RM] Stat 04/09/18 20:41 cefTRIAXone [Rocephin in Dextrose,Iso-Osm 2 GM/50 ML] 2 gm Premix Bag 1 bag IV ONETIME - Assessment/Plan Last 24 Hours: My Active Orders 04/09/18 19:28 Blood Glucose Check, Bedside [RC] ONETIME Communication Order [RC] STAT Saline Lock Insert [OM.PC] Stat 04/09/18 19:29 Sodium Chloride 0.9% [Saline Flush] 10 ml FLUSH ASDIRECTED PRN Sodium Chloride 0.9% [Saline Flush] 2.5 ml FLUSH ASDIRECTED PRN 04/09/18 20:00 CULTURE URINE [RM] Stat 04/09/18 20:41 cefTRIAXone [Rocephin in Dextrose,Iso-Osm 2 GM/50 ML] 2 gm Premix Bag 1 bag IV ONETIME
[2018-04-09 20:39] LABS: CHLORIDE,CL 102 mmol/L (98-107); SODIUM,NA 140 mmol/L (136-148)
[2018-04-09] MEDS ORDERED: cefTRIAXone 2 GM in Premix Bag 1 BAG IV ONE (20:41)
[2018-04-09 22:20] VITALS: BP 113/55
== END 2018-04-09 22:21 ==
LOC: MW.ED 18:35
DX: N39.0 Urinary tract infection, site not specified (principal); E86.0 Dehydration; I10 Essential (primary) hypertension; E11.9 Type 2 diabetes mellitus without complications; E78.00 Pure hypercholesterolemia, unspecified; Z91.030 Bee allergy status; Z88.5 Allergy status to narcotic agent; Z88.8 Allergy status to other drugs, medicaments and biological substances; Z79.899 Other long term (current) drug therapy; Z79.82 Long term (current) use of aspirin; Z79.84 Long term (current) use of oral hypoglycemic drugs; Z87.891 Personal history of nicotine dependence
CPT/HCPCS: 36415; 80053; 81001; 82009; 83735; 85025; 85610; 87086; 96361; 96365; 99283; J0696; J7040

== ENCOUNTER 2022-03-17 12:01 | Emergency (ER) | payer MEDICARE ==
[2022-03-17] MEDS ORDERED: Sodium Chloride 0.9% 1,000 ML IV ONE (12:22)
[2022-03-17 13:56] LABS: CARBON DIOXIDE,CO2 25.2 mmol/L (21.0-32.0); POTASSIUM,K 4.8 mmol/L (3.5-5.1)
[2022-03-17] MEDS ORDERED: traMADol 50 MG Tab PO ONE (14:18)
[2022-03-17 19:36] VITALS: BP 135/88; PULSE 94
== END 2022-03-17 17:32 | disposition left against medical advice (07) ==
LOC: MW.ED 12:01
DX: N39.0 Urinary tract infection, site not specified (principal); R31.9 Hematuria, unspecified; N28.9 Disorder of kidney and ureter, unspecified; R93.41 Abnormal radiologic findings on diagnostic imaging of renal pelvis, ureter, or bladder; E11.9 Type 2 diabetes mellitus without complications; I25.10 Atherosclerotic heart disease of native coronary artery without angina pectoris; E78.00 Pure hypercholesterolemia, unspecified; I10 Essential (primary) hypertension; Z91.030 Bee allergy status; Z88.5 Allergy status to narcotic agent; Z88.8 Allergy status to other drugs, medicaments and biological substances; Z95.5 Presence of coronary angioplasty implant and graft; Z79.84 Long term (current) use of oral hypoglycemic drugs; Z79.899 Other long term (current) drug therapy; Z79.82 Long term (current) use of aspirin; Z79.02 Long term (current) use of antithrombotics/antiplatelets
CPT/HCPCS: 36415; 51702; 74176; 80053; 81001; 83690; 85025; 87086; 96360; 99284; A9270; J7030

== ENCOUNTER 2022-03-20 09:24 | Inpatient (IN) | payer MEDICARE ==
[2022-03-20] MEDS ORDERED: Sodium Chloride 0.9% 1,000 ML IV STA (10:23)
[2022-03-20] MEDS ORDERED: Piperacillin/Tazobactam 3.375 GM in Sodium Chloride 0.9% 50 ML IV ONE (10:53)
[2022-03-20 11:31] LABS: BLOOD UREA NITROGEN,BUN 41 mg/dL (7.0-18.0); CARBON DIOXIDE,CO2 23.3 mmol/L (21.0-32.0); CHLORIDE,CL 105 mmol/L (98-107); GLUCOSE RANDOM 155 mg/dL (74-106); POTASSIUM,K 4.2 mmol/L (3.5-5.1); SODIUM,NA 140 mmol/L (136-148)
[2022-03-20 11:33] LABS: ESTIMATED GFR 36 mL/min (>60)
[2022-03-20] MEDS ORDERED: Sodium Chloride 0.9% 10 ML Syringe FLUSH PRN (15:06)
[2022-03-20] MEDS ORDERED: Docusate Sodium 100 MG Cap PO PRN (15:06)
[2022-03-20] MEDS ORDERED: Sodium Chloride 0.9% 2.5 ML Syringe FLUSH PRN (15:06)
[2022-03-20] MEDS ORDERED: Acetaminophen 325 MG Tab PO PRN (15:06)
[2022-03-20] MEDS ORDERED: Ondansetron 4 MG/2 ML SDV IVPUSH PRN (15:06)
[2022-03-20] MEDS ORDERED: Polyethylene Glycol 3350 Powder 17 GM Packet PO PRN (15:06)
[2022-03-20] MEDS ORDERED: 50% Dextrose in Water 50 ML Syringe IVPUSH PRN (15:22)
[2022-03-20] MEDS ORDERED: Glucagon,Human Recombinant 1 MG Vial IM PRN (15:22)
[2022-03-20] MEDS: Insulin Aspart 100 Units/ML 3 ML Pen SUBCUT SCH (16:47)
[2022-03-20] MEDS: Piperacillin/Tazobactam 2.25 GM in Sodium Chloride 0.9% 50 ML IV SCH ×2 (17:13→23:16)
[2022-03-20] MEDS ORDERED: IRON PS COMPLEX PO SCH (21:00)
[2022-03-20] MEDS ORDERED: FOLIC ACID PO SCH (21:00)
[2022-03-20] MEDS ORDERED: [UNRECOGNIZED DRUG - OTHER] PO SCH (21:00)
[2022-03-20] MEDS: atorvaSTATin 40 MG Tab PO SCH (21:00)
[2022-03-20] MEDS ORDERED: Carvedilol 6.25 MG Tab PO SCH (21:00)
[2022-03-20] MEDS ORDERED: B12 PO SCH (21:00)
[2022-03-20] MEDS ORDERED: Mirtazapine 15 MG Tab PO SCH (21:00)
[2022-03-21] MEDS: Piperacillin/Tazobactam 2.25 GM in Sodium Chloride 0.9% 50 ML IV SCH ×4 (04:31→22:09)
[2022-03-21 05:47] LABS: CARBON DIOXIDE,CO2 24.8 mmol/L (21.0-32.0); POTASSIUM,K 3.8 mmol/L (3.5-5.1)
[2022-03-21] MEDS: Insulin Aspart 100 Units/ML 3 ML Pen SUBCUT SCH ×3 (06:53→16:55)
[2022-03-21] MEDS ORDERED: Magnesium Sulfate/Water 2 GM in Premix Bag 1 BAG IV ONE (07:54)
[2022-03-21] MEDS: Docusate Sodium 100 MG Cap PO SCH (08:46)
[2022-03-21] MEDS ORDERED: Nitroglycerin 0.2 MG/HR Transdermal Patch TRDERM SCH (09:00)
[2022-03-21] MEDS ORDERED: Gemfibrozil 600 MG Tab PO SCH (09:00)
[2022-03-21] MEDS: atorvaSTATin 40 MG Tab PO SCH (20:04)
[2022-03-22] MEDS: Piperacillin/Tazobactam 2.25 GM in Sodium Chloride 0.9% 50 ML IV SCH ×4 (04:02→22:59)
[2022-03-22 06:28] LABS: BLOOD UREA NITROGEN,BUN 27 mg/dL (7.0-18.0); CARBON DIOXIDE,CO2 23.5 mmol/L (21.0-32.0); CHLORIDE,CL 108 mmol/L (98-107); GLUCOSE RANDOM 209 mg/dL (74-106); SODIUM,NA 141 mmol/L (136-148)
[2022-03-22 06:32] LABS: ESTIMATED GFR 40 mL/min (>60)
[2022-03-22] MEDS: Insulin Aspart 100 Units/ML 3 ML Pen SUBCUT SCH ×3 (07:55→17:01)
[2022-03-22] MEDS: Docusate Sodium 100 MG Cap PO SCH (09:20)
[2022-03-22] MEDS: atorvaSTATin 40 MG Tab PO SCH (20:02)
[2022-03-23] MEDS: Piperacillin/Tazobactam 2.25 GM in Sodium Chloride 0.9% 50 ML IV SCH ×4 (04:00→22:10)
[2022-03-23 06:35] LABS: BLOOD UREA NITROGEN,BUN 34 mg/dL (7.0-18.0); CHLORIDE,CL 109 mmol/L (98-107); GLUCOSE RANDOM 165 mg/dL (74-106); POTASSIUM,K 3.9 mmol/L (3.5-5.1); SODIUM,NA 143 mmol/L (136-148)
[2022-03-23 06:39] LABS: ESTIMATED GFR 43 mL/min (>60)
[2022-03-23] MEDS: Insulin Aspart 100 Units/ML 3 ML Pen SUBCUT SCH ×3 (07:52→17:07)
[2022-03-23] MEDS: Docusate Sodium 100 MG Cap PO SCH (09:18)
[2022-03-23] MEDS: atorvaSTATin 40 MG Tab PO SCH (20:19)
[2022-03-24] MEDS: Piperacillin/Tazobactam 2.25 GM in Sodium Chloride 0.9% 50 ML IV SCH ×2 (04:05→11:03)
[2022-03-24 06:16] LABS: BLOOD UREA NITROGEN,BUN 32 mg/dL (7.0-18.0); CARBON DIOXIDE,CO2 25.9 mmol/L (21.0-32.0); CHLORIDE,CL 108 mmol/L (98-107); GLUCOSE RANDOM 110 mg/dL (74-106); POTASSIUM,K 4.3 mmol/L (3.5-5.1); SODIUM,NA 142 mmol/L (136-148)
[2022-03-24 06:20] LABS: ESTIMATED GFR 47 mL/min (>60)
[2022-03-24] MEDS: Insulin Aspart 100 Units/ML 3 ML Pen SUBCUT SCH ×2 (06:34→11:02)
[2022-03-24] MEDS: Docusate Sodium 100 MG Cap PO SCH (09:21)
[2022-03-24 12:21] VITALS: BP 160/70; PULSE 66
== END 2022-03-24 14:00 | disposition home or self-care (01) | DRG 690 ==
LOC: MW.ED 09:24 → MW.MS 14:15
PROVIDERS: ADMIT Internal Medicine; ATTEND Internal Medicine
DX: N30.01 Acute cystitis with hematuria (principal); N17.9 Acute kidney failure, unspecified; E11.9 Type 2 diabetes mellitus without complications; C67.9 Malignant neoplasm of bladder, unspecified; I25.10 Atherosclerotic heart disease of native coronary artery without angina pectoris; D62 Acute posthemorrhagic anemia; N18.9 Chronic kidney disease, unspecified; Z95.1 Presence of aortocoronary bypass graft; Z95.5 Presence of coronary angioplasty implant and graft; Z79.02 Long term (current) use of antithrombotics/antiplatelets; T83.098A Other mechanical complication of other urinary catheter, initial encounter; I44.0 Atrioventricular block, first degree; Z79.82 Long term (current) use of aspirin; I10 Essential (primary) hypertension; Z90.79 Acquired absence of other genital organ(s); Z89.612 Acquired absence of left leg above knee; Z89.611 Acquired absence of right leg above knee; Y84.6 Urinary catheterization as the cause of abnormal reaction of the patient, or of later complication, without mention of misadventure at the time of the procedure
CPT/HCPCS: 36415; 36430; 80048; 80053; 81001; 82947; 83605; 83690; 83735; 85014; 85018; 85025; 85610; 86850; 86900; 86901; 86920; 87086; 87107; 93005; 96365; 96375; 99284-25; A9270-GY; J1815-GY; J2543; J3475; J7030; J7050; P9016; U0002

== ENCOUNTER 2022-07-18 12:51 | Emergency (ER) | payer MEDICAID, MEDICARE ==
[2022-07-18 14:23] VITALS: BP 101/32; PULSE 87
[2022-07-18] MEDS ORDERED: Acetaminophen/oxyCODONE 325-10 MG Tab PO STA (14:34)
== END 2022-07-18 15:12 | disposition home or self-care (01) ==
LOC: MW.ED 12:51
DX: G89.4 Chronic pain syndrome (principal); I25.10 Atherosclerotic heart disease of native coronary artery without angina pectoris; E11.22 Type 2 diabetes mellitus with diabetic chronic kidney disease; I12.9 Hypertensive chronic kidney disease with stage 1 through stage 4 chronic kidney disease, or unspecified chronic kidney disease; N18.9 Chronic kidney disease, unspecified; F17.210 Nicotine dependence, cigarettes, uncomplicated; Z88.5 Allergy status to narcotic agent; Z88.8 Allergy status to other drugs, medicaments and biological substances; Z91.030 Bee allergy status
CPT/HCPCS: 99283; A9270